=== PATIENT | male | born 1975 | race Caucasian/White ===

== ENCOUNTER 2016-04-18 10:50 | Emergency (ER) | payer MEDICARE, MEDICAID ==
[2016-04-18] MEDS ORDERED: ASPIRIN 81 MG TABLET, CHEWABLE PO ONE (11:13)
--- NOTE | 2016-04-18 11:14 | ER Document Report ---
ED Medical Screen (RME) - General Stated Complaint: CHEST PAIN Mode of Arrival: Ambulatory Information source: Patient Notes: Patient complains of left-sided chest pain for the past year. Patient states she's had problems with endocarditis in the past. Patient denies any nausea or vomiting. Patient does report some shortness of breath. hx: chronic back pain I have greeted and performed a rapid initial assessment of this patient. A comprehensive ED assessment and evaluation of the patient, analysis of test results and completion of the medical decision making process will be conducted by additional ED providers. Physical Exam - Vital signs Vitals: Temp Pulse Resp BP Pulse Ox 97.7 F 102 H 18 104/67 98 04/18/16 10:54 04/18/16 10:54 04/18/16 10:54 04/18/16 10:54 04/18/16 10:54 - Cardiovascular Rhythm: Regular Heart sounds: S1 appreciated, S2 appreciated Course - Vital Signs Vital signs: Temp Pulse Resp BP Pulse Ox 97.7 F 102 H 18 104/67 98 04/18/16 10:54 04/18/16 10:54 04/18/16 10:54 04/18/16 10:54 04/18/16 10:54
--- NOTE | 2016-04-18 11:57 | EKG REPORT ---
SEVERITY:- NORMAL ECG - SINUS RHYTHM : Confirmed by: Isela Fischer MD 18-Apr-2016 11:57:12
[2016-04-18 13:44] LABS: ABSOLUTE BASOPHILS # (AUTO) 0.1 10^3/uL (0.0-0.2); ABSOLUTE EOSINOPHILS # (AUTO) 0.1 10^3/uL (0.0-0.6); ABSOLUTE LYMPHOCYTES (AUTO) 2.1 10^3/uL (0.5-4.7); ABSOLUTE MONOCYTES (AUTO) 0.5 10^3/uL (0.1-1.4); ABSOLUTE NEUT (AUTO) 5.9 10^3/uL (1.7-8.2); BASOPHILS % (AUTO) 0.7 % (0-2); EOSINOPHILS % (AUTO) 1.7 % (0-6); HEMATOCRIT 40.7 % (37.9-51.0); HGB HCT DIFFERENCE 1.3; LYMPHOCYTES % (AUTO) 23.7 % (13-45); MEAN CORPUSCULAR HEMOGLOBIN 32.2 pg (27.0-33.4); MEAN CORPUSCULAR HGB CONC 34.5 g/dL (32.0-36.0); MEAN CORPUSCULAR VOLUME 93 fl (80-97); MONOCYTES % (AUTO) 6.1 % (3-13); RED BLOOD COUNT 4.36 10^6/uL (4.35-5.55); RED CELL DISTRIBUTION WIDTH 13.5 % (11.5-14.0); SEGMENTED NEUTROPHILS % (AUTO) 67.8 % (42-78); WHITE BLOOD COUNT 8.7 10^3/uL (4.0-10.5)
[2016-04-18 14:06] LABS: APPEARANCE,URINE CLEAR; BILIRUBIN,URINE NEGATIVE (NEGATIVE); GLUCOSE, URINE NEGATIVE (NEGATIVE); KETONES,URINE NEGATIVE (NEGATIVE); LEUKOCYTE ESTERASE,URINE NEGATIVE (NEGATIVE); NITRITE,URINE NEGATIVE (NEGATIVE); PROTEIN,URINE NEGATIVE (NEGATIVE); URINE SPECIFIC GRAVITY 1.006; UROBILINOGEN,URINE NEGATIVE mg/dL (<2.0)
[2016-04-18 14:07] LABS: ALANINE AMINOTRANSFERASE 753 U/L (21-72); ALBUMIN 3.8 g/dL (3.5-5.0); ALKALINE PHOSPHATASE 100 U/L (38-126); ANION GAP 8 (5-19); ASPARTATE AMINO TRANSFERASE 460 U/L (17-59); BILIRUBIN,TOTAL 0.6 mg/dL (0.2-1.3); BLOOD UREA NITROGEN 19 mg/dL (7-20); CALCIUM 9.4 mg/dL (8.4-10.2); CARBON DIOXIDE 32 mmol/L (22-30); CHLORIDE 102 mmol/L (98-107); CREATINE KINASE 39 U/L (55-170); CREATININE RESULT 1.21 mg/dL (0.52-1.25); GLUCOSE 82 mg/dL (75-110); POTASSIUM 4.1 mmol/L (3.6-5.0); SODIUM 141.8 mmol/L (137-145); TOTAL PROTEIN 8.3 g/dL (6.3-8.2)
[2016-04-18 14:12] LABS: URINE BARBITURATES SCREEN NEGATIVE; URINE METHADONE SCREEN NEGATIVE; URINE OPIATES LOW NEGATIVE; URINE PHENCYCLIDINE SCREEN NEGATIVE
[2016-04-18 14:19] LABS: CREATINE KINASE MB < 0.22 ng/mL (<4.55); TROPONIN I < 0.012 ng/mL
[2016-04-18] MEDS ORDERED: MORPHINE SULFATE 10 MG/ML INJ IV ONE (14:33)
--- NOTE | 2016-04-18 15:02 | ER Document Report ---
ED Cardiac - General Chief Complaint: Chest Pain Stated Complaint: CHEST PAIN Mode of Arrival: Ambulatory Notes: Patient is a 40-year-old female presents emergency Department complaining of chest pain on and off for about one year. Patient states that he had previously been treated at [facility] for endocarditis one year ago. Patient states he has not been compliant with follow-up. At this time he admits to burning sharp pain in the left lower aspect of his chest worse with deep breathing. Patient also admits to cough denies any fevers, productive cough. Other than stated past medical history denies. Denies drug use. Admits to social alcohol use TRAVEL OUTSIDE OF THE [place] IN LAST 30 DAYS: No Past Medical History - General Information source: Patient - Social History Smoking Status: Current Every Day Smoker Chew tobacco use (# tins/day): Yes Frequency of alcohol use: None Drug Abuse: None Family History: Reviewed & Not Pertinent Patient has suicidal ideation: No Patient has homicidal ideation: No Renal/ Medical History: Denies: Hx Peritoneal Dialysis Surgical Hx: Negative Review of Systems - Review of Systems Constitutional: No symptoms reported EENT: No symptoms reported Cardiovascular: No symptoms reported Respiratory: See HPI Gastrointestinal: No symptoms reported Genitourinary: No symptoms reported Male Genitourinary: No symptoms reported Musculoskeletal: No symptoms reported Skin: No symptoms reported Hematologic/Lymphatic: No symptoms reported Neurological/Psychological: No symptoms reported Physical Exam - Vital signs Vitals: Temp Pulse Resp BP Pulse Ox 97.7 F 102 H 18 104/67 98 04/18/16 10:54 04/18/16 10:54 04/18/16 10:54 04/18/16 10:54 04/18/16 10:54 - General General appearance: Appears well, Alert In distress: None - HEENT Mouth/Lips: Caries, Dental fracture - Respiratory Respiratory status: No respiratory distress Chest status: Tender - left lateral loer chest, Pain on movement, Pain with cough, Pain with deep breathing Breath sounds: Wheezing Chest palpation: Normal - Cardiovascular Rhythm: Regular Heart sounds: Normal auscultation, S1 appreciated, S2 appreciated Gallop: None auscultated Pulses: Normal: Radial Normal capillary refill: Yes - Abdominal Inspection: Normal Distension: No distension Bowel sounds: Normal Tenderness: Nontender Organomegaly: No organomegaly - Extremities General upper extremity: Normal inspection, Nontender, Normal ROM, Normal strength, Normal temperature General lower extremity: Normal inspection, Nontender, Normal ROM, Normal strength, Normal temperature, Normal weight bearing - Skin Skin Temperature: Warm Skin Moisture: Dry Skin Color: Normal Skin Turgor: Elastic Course - Re-evaluation Re-evalutation: 04/18/16 15:33 Patient is very well in appearance, vitals within normal limits. Low clinical suspicion for ACS given clinical history, exam, EKG without ST elevations or depressions, and negative initial troponin. HEART score less than or equal to 3. PE also seems unlikely given clinical history, absence of tachycardia or dyspnea. Well's score of 0. CXR without evidence of pneumothorax or pneumonia. No widened mediastinum. Aortic dissection also seems unlikely given history, symmetric pulses, CXR, and vitals. ON his xray there is evidence of left lower lobe infiltrate which is in the area of his chest pain. At this time will discharge with return precautions and follow-up recommendations. Verbal discharge instructions given a the bedside and opportunity for questions given. Medication warnings reviewed. Patient is in agreement with this plan and has verbalized understanding of return precautions and the need for primary care follow-up in the next 24-72 hours. - Vital Signs Vital signs: Temp Pulse Resp BP Pulse Ox 97.7 F 102 H 20 109/73 100 04/18/16 10:54 04/18/16 10:54 04/18/16 14:01 04/18/16 14:01 04/18/16 14:01 - Laboratory Result Diagrams: 04/18/16 13:33 04/18/16 13:33 Laboratory results interpreted by me: 04/18/16 04/18/16 13:33 13:46 Carbon Dioxide 32 H AST 460 H ALT 753 H Creatine Kinase 39 L Total Protein 8.3 H Urine Blood LARGE H - Diagnostic Test Radiology reviewed: Image reviewed, Reports reviewed - EKG Interpretation by Me EKG shows normal: Sinus rhythm Rate: Normal Rhythm: NSR When compared to previous EKG there are: No significant change Discharge - Discharge Clinical Impression: Pneumonia Qualifiers: Pneumonia type: due to unspecified organism Laterality: left Lung location: lower lobe of lung Qualified Code(s): J18.1 - Lobar pneumonia, unspecified organism Condition: Good Disposition: HOME, SELF-CARE Additional Instructions: PNEUMONIA: Your examination indicates that you have pneumonia. This is an infection of the lung tissue, usually caused by bacteria or a virus. Symptoms include cough, fever, shaking chills, chest pain, shortness of breath, and coughing up bloody sputum. Treatment for bacterial pneumonia includes rest, antibiotics for 10 to 14 days, increasing your clear liquid intake, a cool mist humidifier at your bedside, and fever medication. Often, a repeat chest X-ray is performed in a few weeks--even if you feel better--to ascertain whether the infection has completely resolved and no underlying lung problem is present. You should call the physician if you develop persistent vomiting, high fever that does not respond to fever medication, increasing shortness of breath , confusion, or lethargy. Also, failure to improve within two to three days is an indication for re-examination. ANTIBIOTIC THERAPY: You have been given an antibiotic prescription. It's important that you take all the medication, unless instructed otherwise by your physician. Failure to complete the entire course can result in relapse of your condition. Common side effects of antibiotics include nausea, intestinal cramping, or diarrhea. Women may develop vaginal yeast infections, and babies can get yeast (thrush) in the mouth following the use of antibiotics. Contact your physician if you develop significant side effects from this medication. Allergy to this antibiotic can result in hives, wheezing, faintness, or itching. If symptoms of allergy occur, stop the medication and call the doctor. LEVOFLOXACIN: You have been given an antibacterial agent, levofloxacin (Levaquin). This medicine is not related to the penicillins, sulfas, cephalosporins, or tetracyclines. It is often given to patients who are allergic to these drugs. It has been chosen for you either because other drugs are not appropriate, or because of the nature of your problem. Levaquin should not be taken with antacids, as these can decrease its effectiveness. It can be taken without regard to meals. LEVAQUIN SHOULD NOT BE TAKEN BY CHILDREN, NURSING WOMEN, OR WOMEN. Although Levaquin is usually well-tolerated, common side effects can include nausea and diarrhea. Contact your doctor if you experience any unusual symptoms while on this medication, such as joint pain or swelling, shortness of breath, wheezing, faintness, or hives. USE OF ACETAMINOPHEN (Tylenol): Acetaminophen may be taken for pain relief or fever control. It's much safer than aspirin, offering a wider range of "safe" dosages. It is safe during . Some brand names are Tylenol, Panadol, Datril, Anacin 3, Tempra, and Liquiprin. Acetaminophen can be repeated every four hours. The following are maximum recommended dosages: WEIGHT Dose Drops Elixir Chewable( 80mg) (LBS.) drprs=droppers tsp=teaspoon 6 40 mg 0.4 ml (1/2) 6-11 80 mg 0.8 ml (full) tsp 1 tab 12-16 120 mg 1 1/2 drprs 3/4 tsp 1 1/2 tabs 17-23 160 mg 2 drprs 1 tsp 2 tabs 24-30 240 mg 3 drprs 1 1/2 tsp 3 tabs 30-35 320 mg 2 tsp 4 tabs 36-41 360 mg 2 1/4 tsp 4 1/2 tabs 42-47 400 mg 2 1/2 tsp 5 tabs 48-53 480 mg 3 tsp 6 tabs 54-59 520 mg 3 1/4 tsp 6 1/2 tabs 60-64 560 mg 3 1/2 tsp 7 tabs 65-70 600 mg 3 3/4 tsp 7 1/2 tabs 71-76 640 mg 4 tsp 8 tabs 77-82 720 mg 4 1/2 tsp 9 tabs 83-88 800 mg 5 tsp 10 tabs >89 pounds or adults 650 mg to 900 mg Acetaminophen can be repeated every four hours. Maximum dose not to exceed 4000 mg a day. These maximum recommended dosages are slightly higher than the dosages written on the product container, but these dosages are very safe and below the toxic dosage for acetaminophen. FOLLOW-UP CARE: If you have been referred to a physician for follow-up care, call the physician s office for an appointment as you were instructed or within the next two days. If you experience worsening or a significant change in your symptoms, notify the physician immediately or return to the Emergency Department at any time for re-evaluation. Prescriptions: Tramadol HCl [Ultram] 50 mg PO Q6HP PRN #20 tablet PRN Reason: Levofloxacin 500 mg PO DAILY #10 tablet Referrals: JEROME MCCORMICK MD [ACTIVE STAFF] - Follow up as needed SHERMAN ESPINOSA MD [ACTIVE STAFF] - Follow up as needed
[2016-04-18] MEDS ORDERED: LEVOFLOXACIN 500 MG TABLET PO ONE (15:07)
--- NOTE | 2016-04-18 15:14 | ER Document Report ---
Doctor's Note Notes: 04/18/16 15:12 40-year-old male who complains of one-week history of sharp left lateral chest pain. Patient reports a history of endocarditis within the past year but cannot remember if that was diagnosed [facility] or [facility]. He cannot recall what doctor he saw what medications were prescribed for what his instructions were regarding follow-up. He reports subjective fever and chills for the past 2 days and nonproductive cough but denies nausea vomiting. On exam chest with few wheezes bilaterally breath sounds equal good aeration excess muscle use tender to palpation in the left lateral chest which reproduces patient's pain no lesions are noted this area. Heart regular rate and rhythm no murmur no rub line chest x-ray she read as showing left lower lobe infiltrate EKG shows sinus rhythm no acute changes
[2016-04-18] MEDS ORDERED: TRAMADOL HCL 50 MG TABLET PO ONE (16:02)
[2016-04-18 16:08] VITALS: BP 117/80
== END 2016-04-18 16:06 | disposition home or self-care (01) ==
LOC: ER 10:50
DX: J18.1 Lobar pneumonia, unspecified organism (principal); R07.9 Chest pain, unspecified; R05 Cough; F17.200 Nicotine dependence, unspecified, uncomplicated; Z86.79 Personal history of other diseases of the circulatory system; Z91.19 Patient's noncompliance with other medical treatment and regimen
CPT/HCPCS: 93005; 99285; 96374; 36415; 82553; 80307 ×2; 82550; 85025; 80053; 81001; 84484; 71020; 93010; A9270 ×2; J2270